=== PATIENT | male | born 1965 | race Caucasian/White ===

== ENCOUNTER 2019-10-16 00:18 | Emergency (ER) | payer BC ==
[~2019-10-16] VITALS: Ht 175.3 cm; Wt 99.8 kg
[2019-10-16 00:52] VITALS: BP 118/77
[2019-10-16] MEDS ORDERED: methylPREDNISolone SOD SUCC 125 MG/2 ML VL IM ONE (01:30)
[2019-10-16] MEDS ORDERED: ACETAMINOPHEN 500 MG TAB PO ONE (01:30)
== END 2019-10-16 02:06 | disposition home or self-care (01) ==
LOC: ER 00:25
DX: G43.909 Migraine, unspecified, not intractable, without status migrainosus (principal)
CPT/HCPCS: 96372; 99283; J2930